=== PATIENT | male | born 1995 ===

== ENCOUNTER 2020-10-28 13:49 | Emergency (ER) | payer SELFPAY ==
[~2020-10-28] VITALS: Ht 167.6 cm; Wt 72.7 kg
[~2020-10-28 13:49] MED LIST: PROMETHAZINE V118 ML
[2020-10-28 13:53] VITALS: BP 162/75; TEMP 97.9
[2020-10-28 15:02] VITALS: PULSE 91
== END 2020-10-28 15:19 | disposition home or self-care (01) ==
LOC: COL.ER 13:49
DX: S62.306A Unspecified fracture of fifth metacarpal bone, right hand, initial encounter for closed fracture (principal); Z90.89 Acquired absence of other organs; W01.0XXA Fall on same level from slipping, tripping and stumbling without subsequent striking against object, initial encounter; Y93.66 Activity, soccer

== ENCOUNTER 2020-10-30 09:30 | Day surgery (SDC) | payer OTHER ==
[~2020-10-30] VITALS: Ht 167.6 cm; Wt 73.0 kg
[2020-10-30 08:19] VITALS: BP 152/74; PULSE 65; TEMP 98
--- NOTE | 2020-10-30 08:35 | NUR ---
TO RM 4 AT 0748- CALL LIGHT IN REACH COVID TEST SENT TO LAB/ NO SYMPTOMS AND NO EXPOSURE.
[2020-10-30] MEDS ORDERED: NORCO 325 MG-51 TAB PO (10:36)
[2020-10-30 10:46] VITALS: BP 120/64; PULSE 58; TEMP 97.8
--- NOTE | 2020-10-30 10:46 | NUR ---
TO RM 4 PER CART FROM OR. ALERT ORIENTED X3, TALKING TO STAFF. RIGHT ARM IN SLING. NO FEELING AND UNABLE TO MOVE FINGERS. ELEVATED ON PILLOW AND ICED. DENIES PAIN OR DISCOMFORT. DENIES NAUSEA OR VOMITING. SITTING UP IN BED. RECEIVED PEPSI AND TAKING SIPS.
[2020-10-30 11:00] VITALS: BP 121/62; PULSE 58
[2020-10-30 11:15] VITALS: BP 129/50; PULSE 53
--- NOTE | 2020-10-30 11:15 | NUR ---
NO CHANGES RESTING QUIETLY AND TEXTING ON CELL PHONE.
[2020-10-30 11:30] VITALS: BP 129/68; PULSE 54
--- NOTE | 2020-10-30 11:50 | NUR ---
RECEIVED DISCHARGE INSTUCTIONS AND VERBALIZED UNDERSTANDING. ASSISTING PATIENT DRESSED. HE REQUESTED TO PULL SWEATSHIRT OVER SLING. REPOSTIONED SLING PER PATIENT COMFORT.
--- NOTE | 2020-10-30 12:20 | NUR ---
DISCHARGED PER WC BY NURSING STAFF TO PRIVATE CAR IN CARE OF ROOMMATES MOTHER.
== END 2020-10-30 12:52 | disposition home or self-care (01) ==
LOC: SDCO 09:30
DX: S62.326A Displaced fracture of shaft of fifth metacarpal bone, right hand, initial encounter for closed fracture (principal)
CPT/HCPCS: J2250; J2704; J2795; J3010; J7120

== ENCOUNTER 2021-01-21 11:25 | Emergency (ER) | payer OTHER ==
[~2021-01-21] VITALS: Ht 167.6 cm; Wt 71.4 kg
[~2021-01-21 11:25] MED LIST changes: +NORCO 325 MG-51 TAB PO
[2021-01-21 11:38] VITALS: TEMP 98.9
[2021-01-21 13:15] LABS: BASO % 0.7 % (0.0-2.0); EOS % 0.6 % (0-4.0); GRAN # 3.5 (1.4-6.5); GRAN % 64.8 % (42.2-75.2); HEMATOCRIT 43.4 % (42.0-52.0); LYMPH # 1.4 (1.2-3.4); MEAN CELL VOLUME 87 fl (80.0-100.0); MEAN CORPUSCULAR HEMOGLOBIN 32 pg (27.0-31.0); MEAN CORPUSCULAR HGB CONC 37 g/dl (33.0-37.0); MEAN PLATELET VOLUME 10.3 fl (7.4-10.4); MONO # 0.4 (0.1-0.6); PLATELET COUNT 301 K/mm3 (130-400); RED BLOOD COUNT 4.98 M/mm3 (4.20-5.60); REDCELL DISTRIBUTION WIDTH-CV 11.9 % (11.5-14.5)
[2021-01-21 13:18] LABS: ALANINE AMINOTRANSFERASE 26 U/L (4-49); ALBUMIN 4.8 gm/dL (3.5-5.0); ALKALINE PHOSPHATASE 55 U/L (50-136); ANION GAP 12 mmol/L (7-16); AST,SGOT 26 U/L (15-37); BILIRUBIN,TOTAL 1.5 mg/dL (0.0-1.0); BLOOD UREA NITROGEN 12 mg/dL (9-20); CALCIUM 9.2 mg/dL (8.4-10.2); CARBON DIOXIDE 24 mmol/L (22-30); CHLORIDE 103 mmol/L (98-107); CREATININE, serum 0.65 (0.66-1.25); GLUCOSE 87 mg/dL (74-106); LIPASE 40 U/L (23-300); SODIUM 139 mmol/L (137-145); TOTAL PROTEIN 7.8 gm/dL (6.4-8.2)
[2021-01-21 13:29] LABS: TROPONIN-I < 0.012 ng/mL (0.000-0.035)
[2021-01-21] MEDS ORDERED: MIRALAX238G PO (14:13)
[2021-01-21 14:35] VITALS: BP 134/76; PULSE 66
[2021-01-21 14:45] LABS: MUCOUS Present /lpf; PH 9 (5-8); SQUAMOUS EPITHELIAL None Seen /hpf; URINE APPEARANCE Clear; URINE BACTERIA None Seen /hpf; URINE BILIRUBIN Negative (NEGATIVE); URINE BLOOD Negative (NEGATIVE); URINE COLOR Yellow; URINE GLUCOSE Negative (NEGATIVE); URINE KETONE Negative (NEGATIVE); URINE LEUKOCYTE ESTERASE Negative (NEGATIVE); URINE NITRATE Negative (NEGATIVE); URINE PROTEIN(semi-quant) 1+ (NEGATIVE); URINE RBC 0-2 /hpf; URINE WBC 0-2 /hpf
[2021-01-21 15:33] LABS: COLLECTION METHOD CLEAN CATCH
== END 2021-01-21 14:35 | disposition home or self-care (01) ==
LOC: COL.ER 11:25
PROVIDERS: Nurse Practitioner Primary Care
DX: K59.00 Constipation, unspecified (principal); K21.9 Gastro-esophageal reflux disease without esophagitis; R07.9 Chest pain, unspecified; Z98.890 Other specified postprocedural states
CPT/HCPCS: C9113